=== PATIENT | female | born 1970 | race African-American/Black ===

== ENCOUNTER → 2017-12-12 | Emergency (ER) | payer OTHER ==
[~2017-12-12] VITALS: Ht 165.1 cm; Wt 131.5 kg
[~2017-12-12] MED LIST: IBUPROFEN25 GM
== END | disposition home or self-care (01) ==
LOC: ER 19:07
DX: S82.841A Displaced bimalleolar fracture of right lower leg, initial encounter for closed fracture (principal); X50.0XXA Overexertion from strenuous movement or load, initial encounter; Y93.01 Activity, walking, marching and hiking; Y92.838 Other recreation area as the place of occurrence of the external cause; Y99.8 Other external cause status